=== PATIENT | female | born 1930 | race Caucasian/White ===

== ENCOUNTER 2016-09-14 10:27 | Emergency (ER) | payer OTHER ==
[~2016-09-14] VITALS: Ht 162.6 cm; Wt 77.1 kg
[~2016-09-14 10:27] MED LIST: CIPROFLOXACIN500 M1 PO; FLAGYL500 MG PO; LEVOTHYROXINE 0.1 MG PO; NORCO 5-325 TA1 EACH PO; PREMARIN0.3 MG PO
[2016-09-14 11:06] LABS: ABSOLUTE NEUTROPHILS 5.6 thou/uL (1.4-8.2); BASOPHILS 0.7 % (0.0-2.0); HEMATOCRIT 38.6 % (37.0-47.0); HEMOGLOBIN 13.2 gm/dL (12.0-15.0); LYMPHOCYTES 20.7 % (24.0-44.0); MCH 31.4 pg (26.0-34.0); MCHC 34.3 g/dL (28.0-37.0); MCV 91.7 fL (80.0-100.0); MONOCYTES 8.2 % (1.0-8.0); PLATELET COUNT 283 thou/uL (150-400); POLYS 70.4 % (36.0-66.0); RBC 4.22 mil/uL (4.20-5.00); RDW 13.9 % (10.5-14.5); WBC 7.9 thou/uL (4.0-11.0)
[2016-09-14 11:08] LABS: MANUAL DIFF NO
[2016-09-14 11:10] LABS: CALCIUM 9.2 mg/dL (8.5-10.1); CREATININE 0.7 mg/dL (0.6-1.0); POTASSIUM 4.4 mmol/L (3.5-5.1)
[2016-09-14 11:15] LABS: ALBUMIN 3.4 g/dL (3.4-5.0); TOTAL BILIRUBIN 0.5 mg/dL (<0.1-1.0); TOTAL PROTEIN 6.7 g/dL (6.4-8.2)
[2016-09-14] MEDS ORDERED: BENTYL 20 MG TA20 M1 PO (13:31)
[2016-09-14] MEDS ORDERED: HYDROCODONE-AP1 EAC6 PO (13:31)
[2016-09-14] MEDS ORDERED: ONDANSETRON HCL4 M2 PO (13:31)
[2016-09-14 13:52] VITALS: BP 172/76
== END 2016-09-14 13:55 | disposition home or self-care (01) ==
LOC: ER 10:27
PROVIDERS: Physician Assistant
DX: K80.20 Calculus of gallbladder without cholecystitis without obstruction (principal); I10 Essential (primary) hypertension; E89.0 Postprocedural hypothyroidism; Z88.1 Allergy status to other antibiotic agents; Z88.5 Allergy status to narcotic agent; Z88.8 Allergy status to other drugs, medicaments and biological substances

== ENCOUNTER → 2016-12-07 | Outpatient (CLI) | payer OTHER ==
[~2016-12-07] MED LIST changes: +BENTYL 20 MG TA20 M1 PO; +HYDROCODONE-AP1 EAC6 PO; +ONDANSETRON HCL4 M2 PO
[2016-12-07 09:17] LABS: CREATININE 0.8 mg/dL (0.6-1.0)
== END ==
LOC: LABMALL 08:27 → CAT 08:47
PROVIDERS: Specialist
DX: J43.9 Emphysema, unspecified (principal); R10.84 Generalized abdominal pain; R10.13 Epigastric pain; R11.2 Nausea with vomiting, unspecified; R19.7 Diarrhea, unspecified

== ENCOUNTER → 2017-01-21 | Outpatient (CLI) | payer OTHER ==
--- NOTE | ~2017-01-21 | P ---
[facility] [place] [address] PROCEDURE REPORT Name: BUD DONG Room #: REG ESTHELA Navarro#: [id number] Admission: 01/21/17 Attend Phys: Ismael Edgar Discharge: Date of : 32 Report #: [id number] THIS REPORT FOR: //name// CC: Ismael Weber DATE OF SERVICE: 01/21/2017 PROCEDURE PERFORMED: Colonoscopy with polypectomy and biopsies. HISTORY OF PRESENT ILLNESS: The patient is an 86-year-old female with abdominal pain and weight loss who has had a CT scan of the abdomen and pelvis, last at the beginning of the year showing possible thickening of the terminal ileum. She has also had a previous cholecystectomy. A repeat CT scan on 12/07/2016 because of continued symptoms showed high-grade narrowing of the celiac artery, diffuse plaque is present at the origin of the superior mesenteric artery, high grade renal artery stenosis also likely. Also marked inflammation in the distal small bowel consistent with ileitis was again noted, findings similar to the previous study, may reflect inflammatory bowel disease. The patient does have diarrhea. Previous colonoscopy and random biopsies were negative for microscopic colitis. Plan is for repeat colonoscopy to try to attempt further evaluation of terminal ileum. DESCRIPTION OF PROCEDURE: The risks and benefits of the procedure were explained to the patient, those risks including but not limited to bleeding, perforation, the risk of sedation. She understood these risks and gave informed consent. Sedation was given using propofol per anesthesia. Next, a digital rectal exam was initially performed, which was normal. Next, using a standard Fujinon colonoscope, the scope was placed in the patient's anus and advanced under direct vision to the cecum. The overall prep was excellent. The cecum was normal in appearance. The ileocecal valve for the most part was normal; however, I tried multiple times to intubate the terminal ileum and this was strictured. I was not able to intubate the terminal ileum. Several biopsies of the opening of the terminal ileum were obtained. I was not able to evaluate whether there were ulcerations in the terminal ileum again because of inability to pass the scope through this area. The scope was then slowly withdrawn and in the proximal ascending colon, 2 polyps were noted, 5-6 mm in size. Both removed by snare cautery, otherwise normal. The transverse and descending colon were normal. A few scattered diverticula were noted in the sigmoid colon. The rectal mucosa was normal. On retroflexion, small nonbleeding internal hemorrhoids were noted, otherwise normal colonoscopy. The scope was then withdrawn and the procedure terminated. The patient tolerated the procedure well. [address] [address] PROCEDURE REPORT Name: LETITIABUD Meme Room #: REG ESTHELA Navarro#: [id number] Admission: 01/21/17 Attend Phys: Ismael Edgar Discharge: Date of : 32 Report #: [id number] IMPRESSION: 1. Strictured ileocecal valve opening. This may reflect Crohn disease. Biopsies were obtained, but just on the outside. 2. Two colonic polyps. 3. Internal hemorrhoids. 4. Otherwise, normal colonoscopy. RECOMMENDATIONS: 1. Await biopsy results. 2. We will proceed with an ASCA labs test, which may be helpful in determining if this is Crohn's disease. 3. We will schedule the patient for arteriogram in the near future as mesenteric ischemia may be also possible cause of her abdominal pain and weight loss. Thank you for allowing me to participate in her care. <ELECTRONICALLY SIGNED> By: Ismael Colbert MD 01/22/17 1210 1000 1251 Ismael Colbert MD /nt
--- NOTE | ~2017-01-21 | S ---
[facility] [place] [address] SURGICAL PATH RPT PROCEDURE Name: DESTINY DONG Room #: REG ESTHELA MarinoImaniFreddy.#: [id number] Admission: 01/21/17 Date of : 32 Discharge: Report #: [id number] Path Case #: [id number] PATHOLOGY REPORT COLLECTION DATE: 01/21/2017 RECEIVED DATE: 01/21/2017 SUBMITTING PHYS: Dr. Ismael Colbert OTHER PHYS: Dr. Nabeel Weber SPECIMEN(S) RECEIVED: A.Terminal ileum R/O Crohn's, ischemia B.Polyp proximal ascending x2 * * * * * * * * * * * * FINAL DIAGNOSIS: A. Small bowel mucosa, terminal ileum, rule out Crohn's, ischemia, endoscopic biopsy: - Mild focal active inflammation, please see comment. - Negative for dysplasia or malignancy. B. Polyp, proximal ascending, endoscopic biopsy: - Inflamed tubular adenoma. - Negative for high-grade dysplasia. COMMENT: Examination of the "terminal ileum, rule out Crohn's, ischemia" biopsy tissue shows surface epithelial inflammation as well as foci of cryptitis. The lamina propria shows increased cellularity with numerous lymphocytes as well as plasma cells. Basal plasmacytosis is not identified. There are no viral inclusions, parasitic organisms, or granulomata identified. Both fragments sampled show a similar degree or intensity of inflammation. Findings are suggestive of mild active colitis. Early inflammatory bowel disease cannot be excluded (Crohn's disease). There are no findings to suggest an ischemic process. Other entities in the differential diagnosis include focal active colitis due to infectious-type etiology. Please correlate clinically and with endoscopic findings. (IUV:mgr; 01/22/2017) PATHOLOGIST: Brooklyn De Leon M.D. REPORT ELECTRONICALLY SIGNED BY: Brooklyn De Leon M.D. DATE/TIME: 01/22/2017 16:58 * * * * * * * * * * * * GROSS PATHOLOGY: A. The specimen is received in formalin, labeled "Destiny Dong and terminal ileum", are several jensen soft tissue 0.4 x 0.2 x 0.[address] [address] SURGICAL PATH RPT PROCEDURE Name: ALFREDITO DONGMATTHEW Valentine Room #: REG [facility]#: [id number] Admission: 01/21/17 Date of : 32 Discharge: Report #: [id number] Path Case #: [id number] aggregate, entirely submitted in A1. B. The specimen is received in formalin, labeled "Destiny Dong and polyp proximal ascending", are multiple jensen polypoid soft tissue ranging from 0.3 up to 0.9 cm and measuring 1.3 x 1.0 x 0.4 cm in aggregate, resection margin inked black larger polyps are bisected and entirely submitted in B1-B2. (SWS; 01/21/2017) CLINICAL HISTORY: Abdominal pain, colon polyps A- Rule out Crohn's/ischemia INITIAL CPT CODE(S): A; 34797 B; 31973 Professional services performed by [facility] at [facility] [address], [place] [address] Technical services performed by [facility] at [address] [place] [address], [address], [place] [address]. [facility] [address] [place] [address] PHONE: [phone] DIRECTOR: Ernesto Schaffer M.D. * * * END OF REPORT * * *
== END | disposition home or self-care (01) ==
LOC: GI 07:33
DX: D12.2 Benign neoplasm of ascending colon (principal); K63.89 Other specified diseases of intestine; K56.699 Other intestinal obstruction unspecified as to partial versus complete obstruction; K57.30 Diverticulosis of large intestine without perforation or abscess without bleeding; K64.8 Other hemorrhoids; Z90.49 Acquired absence of other specified parts of digestive tract; Z88.6 Allergy status to analgesic agent; Z88.8 Allergy status to other drugs, medicaments and biological substances; Z98.890 Other specified postprocedural states

== ENCOUNTER 2019-02-18 08:45 | Inpatient (IN) | payer OTHER ==
[~2019-02-18] VITALS: Ht 162.6 cm; Wt 98.0 kg
[~2019-02-18 08:45] MED LIST changes: -LEVOTHYROXINE 0.1 MG PO; +LEVOXYL125 MCG PO
[2019-02-18 08:47] VITALS: BP 188/74
[2019-02-18] MEDS ORDERED: PULMICORT0.25 MG/2 INH (09:06)
[2019-02-18] MEDS ORDERED: ASA81BEC PO (09:06)
[2019-02-18] MEDS ORDERED: DEMADEX20 MG PO (09:07)
[2019-02-18] MEDS ORDERED: NEURONTIN100 MG PO (09:07)
[2019-02-18] MEDS ORDERED: VALIUM2 MG PO ×2 (09:07→16:06)
[2019-02-18] MEDS ORDERED: TRAZODONE 150150 M1 PO (09:07)
[2019-02-18 10:52] LABS: ABSOLUTE NEUTROPHILS 6.1 thou/uL (1.4-8.2); BASOPHILS 0.8 % (0.0-2.0); HEMATOCRIT 37.9 % (37.0-47.0); HEMOGLOBIN 12.8 gm/dL (12.0-15.0); LYMPHOCYTES 18.7 % (24.0-44.0); MCH 33.1 pg (26.0-34.0); MCHC 33.8 g/dL (28.0-37.0); MCV 97.9 fL (80.0-100.0); MONOCYTES 10.2 % (1.0-8.0); PLATELET COUNT 351 thou/uL (150-400); POLYS 70.3 % (36.0-66.0); RBC 3.87 mil/uL (4.20-5.00); RDW 15.1 % (10.5-14.5); WBC 8.7 thou/uL (4.0-11.0)
[2019-02-18 10:58] LABS: CALCIUM 10.2 mg/dL (8.5-10.1); CREATININE 0.9 mg/dL (0.6-1.0); POTASSIUM 3.9 mmol/L (3.5-5.1)
[2019-02-18 11:58] VITALS: BP 162/54
[2019-02-18 12:13] VITALS: BP 132/64
[2019-02-18 12:58] LABS: TSH 2.788 uIU/mL (0.358-3.740)
--- NOTE | 2019-02-18 15:09 | 2DMMODE ---
[facility] [address] [place] [address] 2 D/M-MODE ECHOCARDIOGRAM Name: BUD DONG Room #: 453-P [facility]#: [id number] Admission: 02/18/19 Attend Phys: Len Hardin MD Discharge: Date of : 32 Report #: [id number] THIS REPORT FOR: //name// APPROVED REPORT Study performed: 02/18/2019 12:28:45 EXAM: Comprehensive 2D, Doppler, and color-flow Echocardiogram Patient Location: In-Patient Room #: 453 Status: routine BSA: 2.01 HR: 83 bpm BP: 162/54 mmHg Other Information Study Quality: Poor Technically limited study due to inability to position patient, body habitus. Indications Hypertension/HDD 2D Dimensions IVSd: 9.28 (7-11mm) LVOT Diam: 19.30 (18-24mm) LVDd: 39.84 mm PWd: 9.04 (7-11mm) Ascending Ao: 32.08 (22-36mm) LVDs: 29.13 (25-40mm) Aortic Root: 29.96 mm Aortic Valve AoV Peak Bobby.: 1.24 m/s AO Peak Gr.: 6.13 mmHg LVOT Max P.13 mmHg LVOT Max V: 1.02 m/s AI Vmax: 2.40 cm2 Mitral Valve E/A Ratio: 0.9 MV Decel. Time: 153.37 ms MV E Max Bobby.: 0.82 m/s MV A Bobby.: 0.94 m/s MV PHT: 44.48 ms IVRT: 62.28 ms Pulmonary Vein [facility] [address] [place] [address] 2 D/M-MODE ECHOCARDIOGRAM Name: BUD DONG Room #: 453-P [facility]#: [id number] Admission: 02/18/19 Attend Phys: Len Hardin MD Discharge: Date of : 32 Report #: [id number] P Vein S: 0.60 m/s P Vein A: 0.33 m/s P Vein D: 0.32 m/s P Vein A Dur.: 106.1 msec P Vein S/D Ratio: 1.88 Tricuspid Valve TR Peak Bobby.: 3.14 m/s RAP Estimate: 5.00 mmHg TR Peak Gr.: 39.38 mmHg PA Pressure: 44.00 mmHg Left Ventricle The left ventricle is normal size. There is normal left ventricular wall thickness. The left ventricular systolic function is normal. The left ventricular ejection fraction is within the normal range. LVEF is 60-65%. Mild diastolic dysfunction is present (impaired relaxation pattern). Right Ventricle The right ventricle is normal size. Right ventricular systolic function appears normal. Atria The left atrium size is normal. The right atrium size is normal. Aortic Valve The aortic valve is normal in structure. No aortic regurgitation is present. There is no aortic valvular stenosis. Mitral Valve There is mitral annular calcification. Trace mitral regurgitation. No evidence of mitral valve stenosis. Tricuspid Valve The tricuspid valve is normal in structure. Trace tricuspid regurgitation. Estimated PAP is 44mmHg. Pulmonic Valve Pulmonic valve is not well visualized. Great Vessels The aortic root is normal in size. The ascending aorta is normal in size. IVC is normal in size and collapses >50% with inspiration. Pericardium There is no pericardial effusion. [facility] [address] [place] [address] 2 D/M-MODE ECHOCARDIOGRAM Name: BUD DONG Room #: 453-P [facility] .R.#: [id number] Admission: 02/18/19 Attend Phys: Len Hardin MD Discharge: Date of : 32 Report #: [id number] <Conclusion> There is normal left ventricular wall thickness. The left ventricular systolic function is normal. Mild diastolic dysfunction is present (impaired relaxation pattern). The right ventricle is normal size. The left atrium size is normal. The aortic valve is normal in structure. Trace mitral regurgitation. Trace tricuspid regurgitation. Estimated PAP is 44mmHg. <ELECTRONICALLY SIGNED> By: Sohan Story MD 02/18/19 1508 1508 1508 Sohan Story MD /UTE
[2019-02-18] MEDS ORDERED: QUESTRAN PACKET4 GM PO (15:29)
[2019-02-18] MEDS ORDERED: AVAPRO 150 MG150 M1 PO (16:05)
[2019-02-18] MEDS ORDERED: ENTOCORT EC 3 MG3 MG PO (16:14)
[2019-02-18] MEDS ORDERED: COLESTIPOL HCL1 G1 PO (16:15)
[2019-02-18] MEDS ORDERED: CARBIDOPA-LEVO1 EAC8 PO (16:15)
[2019-02-18] MEDS ORDERED: VITAMIN D400 UNIT PO (16:16)
[2019-02-18] MEDS ORDERED: BENADRYL ALLERG25 MG PO (16:16)
--- NOTE | 2019-02-18 16:20 | NUR ---
PT ADMITTED RELATED TO RIGHT LOWER EXTREMITY WOUND. CM REVIEWED CHART AND SPOKE WITH CARE TEAM. CM MET WITH PT AND DTR AT BEDSIDE THIS PT IS A&O X4. CM ROLE INTRODUCED. PT INDICATED SHE LIVES AT ASSISTED LIVING AT [facility]. SHE INDICATED THAT SHE HAS A 4WW AND A WHEELCHAIR FOR USE AT FACILITY. FAMILY INDICATED THAT PT HAS ASSIST WITH BATHING AND DRESSING. THEY INDICATED THAT PT HAD HOME HEALTH THROUGH [facility] IN THE PAST AND THEY WOULD LIKE TO USE THEM AGAIN IF NEEDED UPON DC. [facility]TEY SPECIFICALLY MENTIONED A NURSE NAMES JAYDON. DTR ALSO INDICATED THAT THEY HAD BEEN TAKING PT TO OP THERAPY AT [facility]. PT AND DTR INDICATED THEY ANTICPATE PT RETURNING TO [facility] WITH [facility] ONCE MEDICALLY STABLE. CM TO FOLLOW INDICATED WITH DC PLANNING.
--- NOTE | 2019-02-18 16:37 | NUR ---
NEW ADMIT FORM ED FOR RIGHT LE CELLUTITIS. ALERT X3 WITH FORGETFULNESS, HX OF PARKINSONS, 2 WOUNDS ON RIGHT LE THAT ARE DRAINING WITH REDNESS AND BLISTORING MED REC RECONCILED. FRAGLE SKIN. USES WALKER, LIVES AT [facility]. ADMISSION ASSESMENT AND HISTORY COMPLETED. ORRIENTED TO ROOM. FAMILY BEDSIDE FAMILY VOICED STAFF AT [facility] STOPED PT DIURETIC AND SHE HAS SEVERE SUNDOWNING AND TO KEEP SHADES CLOSED AT 3PM. INCONTIENT WEARS BREIFS, LAST BM 02/18. PT IS A RETIRED NURES OF 35YEARS. FALL PROTOCAL IN PLACE. CALL LIGHT IN REACH.
[2019-02-18 19:24] VITALS: BP 133/56
--- NOTE | 2019-02-19 04:42 | NUR ---
Pt. rested quietly at intervals during the night when checked on during frequent rounds. She was given po tylenol for general discomfort (see emar) with some relief noted. Dressing applied to right lower leg as ordered. Bed alarm is on.
[2019-02-19 05:29] LABS: ABSOLUTE NEUTROPHILS 5.3 thou/uL (1.4-8.2); BASOPHILS 0.8 % (0.0-2.0); EOSINOPHILS 0.1 % (0.0-3.0); HEMATOCRIT 31.3 % (37.0-47.0); LYMPHOCYTES 21.4 % (24.0-44.0); MCH 33.2 pg (26.0-34.0); MCHC 33.9 g/dL (28.0-37.0); MCV 98.2 fL (80.0-100.0); MONOCYTES 9.2 % (1.0-8.0); POLYS 68.5 % (36.0-66.0); RBC 3.19 mil/uL (4.20-5.00); RDW 14.9 % (10.5-14.5); WBC 7.7 thou/uL (4.0-11.0)
[2019-02-19 05:45] LABS: HEMOGLOBIN 10.6 gm/dL (12.0-15.0); PLATELET COUNT 264 thou/uL (150-400)
[2019-02-19 05:57] LABS: CALCIUM 8.8 mg/dL (8.5-10.1); MAGNESIUM 1.8 mg/dL (1.8-2.4)
[2019-02-19 07:26] VITALS: BP 161/68
[2019-02-19] MEDS ORDERED: VITAMIN D34000 UNIT PO ×2 (11:16→11:31)
--- NOTE | 2019-02-19 14:42 | NUR ---
Nutrition: RD assessed due to dx of right lower extremity wound/cellulitis that is draing. Wound care on consult. Attempted to visit pt but dtr rushed RD out of room stating pt is trying to sleep. Pt is retired RN. On regular diet, no po intake records yet. No weight loss per hx. BMI 37, obesity class 2. BNP 397 and pt on torsemide. May benefit from Na+ restriction. RD will follow intake trends and offer Ensure Max daily to assist with wound healing needs. Will attempt re visit 02/20.
[2019-02-19 14:56] VITALS: BP 146/50
--- NOTE | 2019-02-19 16:02 | NUR ---
ASSUMED CARE AT 0700, SHIFT ASSESMENT DONE, MEDS GIVEN, VSS. REPORTED PAIN, PRN PAIN MEDS GIVEN. UP WITH STANDBY ASSIST, REFUSED PHYSCICAL THERAPHY. WILL CONTINUE TO ASSESS AND ASSIST WITH ADLs NEEDED.
[2019-02-19 19:42] VITALS: BP 140/98
[2019-02-20 05:26] LABS: HEMATOCRIT 31.8 % (37.0-47.0); HEMOGLOBIN 10.7 gm/dL (12.0-15.0); MCH 33.1 pg (26.0-34.0); MCHC 33.7 g/dL (28.0-37.0); MCV 98.2 fL (80.0-100.0); RBC 3.24 mil/uL (4.20-5.00); RDW 15.2 % (10.5-14.5)
[2019-02-20 05:32] LABS: CALCIUM 8.7 mg/dL (8.5-10.1); POTASSIUM 4.2 mmol/L (3.5-5.1)
--- NOTE | 2019-02-20 06:14 | NUR ---
Pt. rested quietly at intervals during the night when checked on during frequent rounds. She c/o bilateral hip pain and po pain meds given (see emar) with relief noted. Up to the bedside comode with assist of two. Bed alarm is on.
[2019-02-20 07:38] VITALS: BP 135/70
--- NOTE | 2019-02-20 12:13 | NUR ---
DISCHARGE PLANNING. DISCHARGE PLANNED TO HOME WITH [facility]. PATIENT REFERRAL FAXED TO [facility]. CALL PLACED TO [facility] TO NOTIFY. [facility] ACCEPTING OF PATIENT AT DISCHARGE AND WILL FACILITATE PATIENTS HH NEEDS ONCE HH ORDERS RECEIVED. [facility] INTAKE NUMBER [phone] FAX NUMBER [phone]. SHOULD PATIENT DISCHARGE OVER THE WEEKEND. PLEASE FAXED COMPLETED DISCHARGE ORDERS AND SUMMARY TO ABOVE FAX NUMBER. THANK YOU.
--- NOTE | 2019-02-20 13:17 | NUR ---
CARE TEAM INDICATED THAT PT WILL POSSIBLY BE MEDICALLY STABLE TO DISHCARGE BACK TO [facility] OVER THE WEEKEND WITH [facility]. REFERRAL SENT TO [facility]. CHART COPY ORDERED. ORDERS WILL NEED TO BE FAXED TO . FAX FINAL ORDERS TO [facility] . PT'S DTR TO PROVIDE TRANSPORT.
--- NOTE | 2019-02-20 14:24 | NUR ---
Received awake on bed. Due medications given as prescribed, able to swallow meds w/o difficulty. A+O. On room air. Vital signs stable, with slight BP elevation, BP meds given as prescribed. Occasional incontinence, with pads on but able to use bedside commode and able to walk to the bathroom using gait belt, walker and moderate assist. With Freddy RAHMAN cellulitis- dressing changed today, seen by wound team as well. With SL at L AC- clotted off, re-sited at L wrist. Assisted in ADLs. Falls bundle in place. On regular diet- tolerating well; no nausea, no vomiting and no abdominal pain noted. Seen by PT today- tolerated session, able to walk in the room. With daughter at bedside.
[2019-02-20 15:45] VITALS: BP 135/70
[2019-02-20 17:00] VITALS: BP 128/62
--- NOTE | 2019-02-21 05:15 | NUR ---
Pt. rested quietly during the night when checked on during frequent rounds. She c/o bilateral hip pain and po tylenol given (see emar) with some relief. Up to the bedside comode this am with assist of two and a gait belt.
[2019-02-21 07:50] VITALS: BP 163/67
[2019-02-21 15:20] VITALS: BP 107/56
--- NOTE | 2019-02-21 16:30 | NUR ---
Received awake on bed. Due medications given as prescribed, able to swallow meds w/o difficulty. A+O. On room air. Vital signs stable. Able to use the bedside commode and go to the bathroom using walker, gait belt and moderate assist. With dressing at R LE, C/D/I- changed today. With SL at L wrist- intact and flushing well, IV antibiotics given as prescribed. Assisted in ADLs. Complained of pain, due PRN pain meds given as prescribed. Pt complained that she has not opened her bowels for 3 days, PRN stool softener given as prescribed. With daughter at bedside. Legs kept elevated as much as patient can. With elevated BP noted this AM- BP medications given as prescribed.
[2019-02-21 19:30] VITALS: BP 126/54
--- NOTE | 2019-02-22 02:51 | NUR ---
PATIENT ALERT AND ORIENTED X4. UP WALKING THE HALLWAY AT BEGINNING OF SHIFT WITH HER SON. VOIDING PER BSC. VANCO TROUGH WAS 22 AND PER PHARMACY MEDICATION WAS NOT HUNG. SON REQUESTED THAT PATIENT BE GIVEN VICODIN AT NIGHT WITH HER SCHEDULED MEDS TO ASSIST WITH SLEEPING AND PAIN - THIS WAS DONE. RESTING QUIETLY AT TIME OF NOTE. WILL MONITOR.
[2019-02-22 08:07] VITALS: BP 125/50
[2019-02-22 16:00] VITALS: BP 103/43
--- NOTE | 2019-02-22 17:52 | NUR ---
Assumed patient care at 0715. Patient's vital signs have been stable. She has had a caregiver and her daughter taking turns, staying around the clock. Daughter can be very demanding and in turn, upset her mother whom is much appreciative of the care she is receiving at this facility. Patient was assisted with a shower and her dressing on lower right leg was changed. IV in left hand had become dislodged sometime during the night, had been bleeding. New IV placed in right hand, it is Saline Locked. Hydrocodone given x's 2 during this shift with partial pain relief. Diazepam requested and recieved this afternoon with effectiveness. Patient and daughter have been talking about being discharged tomorrow. Patient has been assisted x's 1 to restroom and back to bed or chair. She has had no adverse reactions related to her ABT therapy. POC followed. Will continue to monitor.
[2019-02-22 19:22] VITALS: BP 155/53
--- NOTE | 2019-02-23 05:25 | NUR ---
PATIENT ALERT AND ORIENTED X4 WITH FORGETFULNESS AND SOME CONFUSION AT TIMES. CAREGIVER AT BEDSIDE. R LOWER EXT WRAPPED. WALKED IN RAMAN AT BEGINNING OF SHIFT. UP TO BATHROOM X2 WITH ASSIST, GATEBELT AND WALKER. SLEPT MOST OF NIGHT, SLEPT IN CHAIR. C/O PAIN X1.
[2019-02-23 08:49] VITALS: BP 143/41
[2019-02-23 12:21] VITALS: BP 135/70
--- NOTE | 2019-02-23 14:41 | NUR ---
WOUND CARE FOLLOW UP; FOLLWING DR BANG WITH THIS PATIENTS DRESSING CHANGE. D/C IS EMMINENT. PICTURE TAKEN. THE WOUND BED HAS NON VIABLE TISSUE TODAY. THE EXTREMITY IS MODERATLY EDEMATOUS. RECOMMENDATION; DR BANG ORDERED THERAHONEY, BOARDER FOAM, KERLIX,YISEL WRAP. DISCUSSED WITH DIANA
--- NOTE | 2019-02-23 15:02 | NUR ---
Assumed patient care at 0715. Patient's vital signs have been stable. She has been pleasant and cooperative and had no adverse reactions to her Antibiotic Therapy. Wound Care Team came and changed dressing on right lower extremity. A picture was taken of the wounds as patient is to Discharge today. Patient continues to require assist x's 1 to ambulate to and from the restroom. Patient is to Discharge back to Assisted Living Facility with Home Health orders. Daughter has been at patient's bedside; she will be transporting patient to the other facility. POC followed.
[2019-02-23] MEDS ORDERED: KEFLEX500 M1 PO (15:11)
[2019-02-23] MEDS ORDERED: PROTONIX40 M1 PO (15:12)
--- NOTE | 2019-03-02 18:37 | HC ---
[facility] [place] [address] CONSULTATION Name: BUD DONG Room #: 453-P [facility]..#: [id number] Admission: 02/18/19 Attend Phys: Len Hardin MD Discharge: 02/23/19 Date of : 32 Report #: [id number] THIS REPORT FOR: //name// CC: Len Weber DATE OF SERVICE: 02/18/2019 CHIEF COMPLAINT: Ulceration of the right lower extremity. HISTORY OF PRESENT ILLNESS: This is an 88-year-old female patient with a history of Parkinson's disease and chronic vertigo, who was admitted to the hospital with cellulitis of the right leg and nonhealing ulceration with persistent edema. She had been placed on Demadex in the past. However, her medications have been missed for the last couple of weeks, she has developed increasing swelling in the legs with drainage and ulceration. She is admitted to the hospital for ongoing treatment and evaluation. I have been asked to see with regard to wound care. PAST MEDICAL HISTORY: Positive for history of hypertension, chronic labyrinthitis, hypothyroidism, lumbar disk disease, and chronic sinusitis, left foot neuroma, history of Crohn's disease, Parkinson's, Alzheimer's. She has had previous subtotal thyroidectomy. SOCIAL HISTORY: She is patient is a former smoker. No alcohol use. FAMILY HISTORY: Noncontributory. MEDICATIONS: Include Synthroid, Desyrel, Entocort, carbidopa/levodopa, colestipol, vitamin D3, Benadryl, Questran, Avapro, Valium, aspirin, Neurontin, Demadex, Valium. ALLERGIES: CODEINE, MORPHINE, MSG, SCOPOLAMINE, HYDROCODONE, MEPERIDINE. REVIEW OF SYSTEMS: CONSTITUTIONAL: The patient denies fever, chills, or weight loss. NEUROLOGICAL: The patient denies focal weakness, numbness or tingling. EYES: The patient denies any visual changes, redness or drainage. ENT: The patient denies earache, nasal drainage, sore throat. CARDIOVASCULAR: The patient denies chest pain or palpitations or diaphoresis. PULMONARY: The patient complains of mild shortness of breath. Denies cough or sputum production. GASTROINTESTINAL: The patient denies nausea, vomiting, diarrhea or abdominal pain. GENITOURINARY: The patient denies frequency, urgency or dysuria. ORTHOPEDIC: The patient denies pain, swelling and redness in the lower [facility] [address] [place] [address] CONSULTATION Name: BUD DONG Room #: 453-P [facility].#: [id number] Admission: 02/18/19 Attend Phys: Len Hardin MD Discharge: 02/23/19 Date of : 32 Report #: [id number] extremities and ulceration on the right side. Other systems in a 14-point review of systems are negative. PHYSICAL EXAMINATION: VITAL SIGNS: At this time include temperature 36.8, pulse 86, respiratory rate 12, blood pressure 132/64. GENERAL: This is a chronically ill-appearing female patient who appears to be in no distress. HEENT: Head normocephalic. Nose and throat clear. NECK: Supple. LUNGS: Diminished. HEART: Regular rate and rhythm. ABDOMEN: Soft, bowel sounds present. EXTREMITIES: Lower extremities demonstrate palpable distal pulses. She has 2-3+ edema both lower extremities. She has circular ulceration on the posterolateral portion of the right lower leg and surrounding cellulitis. The ulcers are relatively clean, granulating with a scant amount of odor. LABORATORY DATA: Include sodium 137, potassium 3.9, chloride 98, CO2 of 32, BUN 20, creatinine is 0.9, glucose 103. White blood cell count 8.7 with a hemoglobin of 12.8. CLINICAL IMPRESSION: 1. Venous type ulceration of the right lower extremity. 2. Cellulitis, right lower extremity. 3. Hypertension. 4. Lymphedema, bilateral lower extremities. RECOMMENDATIONS: At this point in time, we will use topical Silvadene, morphine, Xeroform, Kerlix and ABD. Gently apply Star wrap toes to knees bilaterally. She will need empiric antibiotic therapy pending culture and sensitivity. She will need elevation of the lower extremities as well as gentle diuresis. I appreciate being asked to see her in consultation. We will follow her while here in the hospital. <ELECTRONICALLY SIGNED> By: Pierce Brar MD 03/02/19 1837 1622 02 Pierce Brar MD /nt
== END 2019-02-23 17:20 | disposition hospice, inpatient (51) | DRG 603 ==
LOC: ER 08:45 → EROBS 11:48 → 4W 11:48 → ENTRNSPT 02-23 15:56 → 4W 02-23 17:20
PROVIDERS: Emergency Medicine; Nurse Practitioner; ADMIT Hospitalist
DX: L03.115 Cellulitis of right lower limb (principal); L97.919 Non-pressure chronic ulcer of unspecified part of right lower leg with unspecified severity; K50.90 Crohn's disease, unspecified, without complications; G20 Parkinson's disease; I10 Essential (primary) hypertension; E89.0 Postprocedural hypothyroidism; Z96.1 Presence of intraocular lens; I73.9 Peripheral vascular disease, unspecified; M48.00 Spinal stenosis, site unspecified; G30.9 Alzheimer's disease, unspecified; F02.80 Dementia in other diseases classified elsewhere, unspecified severity, without behavioral disturbance, psychotic disturbance, mood disturbance, and anxiety; Z66 Do not resuscitate; Z60.2 Problems related to living alone; M17.11 Unilateral primary osteoarthritis, right knee; G47.00 Insomnia, unspecified; E53.8 Deficiency of other specified B group vitamins; E66.9 Obesity, unspecified; M48.061 Spinal stenosis, lumbar region without neurogenic claudication; L30.9 Dermatitis, unspecified; I89.0 Lymphedema, not elsewhere classified; Z79.82 Long term (current) use of aspirin; Z79.899 Other long term (current) drug therapy; Z88.6 Allergy status to analgesic agent; Z88.8 Allergy status to other drugs, medicaments and biological substances; Z87.891 Personal history of nicotine dependence
CPT/HCPCS: 10047

== ENCOUNTER 2019-03-07 09:30 | Emergency (ER) | payer OTHER ==
[~2019-03-07] VITALS: Ht 162.6 cm; Wt 81.7 kg
[~2019-03-07 09:30] MED LIST changes: +ASA81BEC PO; +AVAPRO 150 MG150 M1 PO; +BENADRYL ALLERG25 MG PO; +CARBIDOPA-LEVO1 EAC8 PO; +COLESTIPOL HCL1 G1 PO; +DEMADEX20 MG PO; +ENTOCORT EC 3 MG3 MG PO; +KEFLEX500 M1 PO; +NEURONTIN100 MG PO; +PROTONIX40 M1 PO; +PULMICORT0.25 MG/2 INH; +QUESTRAN PACKET4 GM PO; +TRAZODONE 150150 M1 PO; +VALIUM2 MG PO; +VITAMIN D34000 UNIT PO; +VITAMIN D400 UNIT PO
[2019-03-07 10:59] VITALS: BP 157/41
[2019-03-07] MEDS ORDERED: PHENERGAN 25 MG25 MG PO (11:04)
== END 2019-03-07 11:48 | disposition home or self-care (01) ==
LOC: ER 09:30
DX: R05 Cough (principal); F17.210 Nicotine dependence, cigarettes, uncomplicated; J44.9 Chronic obstructive pulmonary disease, unspecified; I10 Essential (primary) hypertension; E03.9 Hypothyroidism, unspecified; Z88.5 Allergy status to narcotic agent; Z88.8 Allergy status to other drugs, medicaments and biological substances; Z79.82 Long term (current) use of aspirin; Z79.899 Other long term (current) drug therapy; Z98.890 Other specified postprocedural states

== ENCOUNTER → 2019-03-12 | Outpatient (CLI) | payer OTHER ==
[~2019-03-12] MED LIST changes: +PHENERGAN 25 MG25 MG PO
== END ==
LOC: HYPER
DX: L97.811 Non-pressure chronic ulcer of other part of right lower leg limited to breakdown of skin (principal); G20 Parkinson's disease; K50.019 Crohn's disease of small intestine with unspecified complications; I74.8 Embolism and thrombosis of other arteries; E78.5 Hyperlipidemia, unspecified; I10 Essential (primary) hypertension; M81.0 Age-related osteoporosis without current pathological fracture; E03.9 Hypothyroidism, unspecified; M16.0 Bilateral primary osteoarthritis of hip; E55.9 Vitamin D deficiency, unspecified; M54.16 Radiculopathy, lumbar region; N39.498 Other specified urinary incontinence; N60.19 Diffuse cystic mastopathy of unspecified breast; M19.90 Unspecified osteoarthritis, unspecified site; G47.00 Insomnia, unspecified; R60.0 Localized edema; R26.9 Unspecified abnormalities of gait and mobility; R53.83 Other fatigue; J44.9 Chronic obstructive pulmonary disease, unspecified; F41.8 Other specified anxiety disorders; F32.1 Major depressive disorder, single episode, moderate; F03.90 Unspecified dementia, unspecified severity, without behavioral disturbance, psychotic disturbance, mood disturbance, and anxiety; F17.200 Nicotine dependence, unspecified, uncomplicated

== ENCOUNTER → 2019-04-08 | Outpatient (CLI) | payer OTHER | LOC: HYPER 10:38 | DX: L97.811 Non-pressure chronic ulcer of other part of right lower leg limited to breakdown of skin (principal); L03.115 Cellulitis of right lower limb; E78.5 Hyperlipidemia, unspecified; E03.9 Hypothyroidism, unspecified; M16.0 Bilateral primary osteoarthritis of hip; I10 Essential (primary) hypertension; K50.019 Crohn's disease of small intestine with unspecified complications; I74.8 Embolism and thrombosis of other arteries; J44.9 Chronic obstructive pulmonary disease, unspecified; M81.0 Age-related osteoporosis without current pathological fracture; G47.00 Insomnia, unspecified; R26.9 Unspecified abnormalities of gait and mobility; E55.9 Vitamin D deficiency, unspecified; M54.16 Radiculopathy, lumbar region; N39.498 Other specified urinary incontinence; G20 Parkinson's disease; F02.80 Dementia in other diseases classified elsewhere, unspecified severity, without behavioral disturbance, psychotic disturbance, mood disturbance, and anxiety; F41.8 Other specified anxiety disorders; F32.1 Major depressive disorder, single episode, moderate; F17.200 Nicotine dependence, unspecified, uncomplicated ==

== ENCOUNTER → 2019-04-16 | Outpatient (CLI) | payer OTHER | END | disposition home or self-care (01) | LOC: SJCVCIMAG 12:23 | DX: M79.604 Pain in right leg (principal); M79.605 Pain in left leg; R22.43 Localized swelling, mass and lump, lower limb, bilateral; M79.89 Other specified soft tissue disorders ==

== ENCOUNTER → 2019-04-27 | Outpatient (CLI) | payer OTHER | LOC: HYPER 14:02 | DX: L97.811 Non-pressure chronic ulcer of other part of right lower leg limited to breakdown of skin (principal); L03.115 Cellulitis of right lower limb; R26.9 Unspecified abnormalities of gait and mobility; K50.019 Crohn's disease of small intestine with unspecified complications; I74.8 Embolism and thrombosis of other arteries; E78.5 Hyperlipidemia, unspecified; J44.9 Chronic obstructive pulmonary disease, unspecified; M81.0 Age-related osteoporosis without current pathological fracture; E03.9 Hypothyroidism, unspecified; I10 Essential (primary) hypertension; M16.0 Bilateral primary osteoarthritis of hip; M54.16 Radiculopathy, lumbar region; N39.498 Other specified urinary incontinence; N60.19 Diffuse cystic mastopathy of unspecified breast; M19.90 Unspecified osteoarthritis, unspecified site; G47.00 Insomnia, unspecified; G20 Parkinson's disease; F02.80 Dementia in other diseases classified elsewhere, unspecified severity, without behavioral disturbance, psychotic disturbance, mood disturbance, and anxiety; F41.9 Anxiety disorder, unspecified; F41.8 Other specified anxiety disorders; F32.1 Major depressive disorder, single episode, moderate; F17.200 Nicotine dependence, unspecified, uncomplicated ==

== ENCOUNTER 2019-05-24 02:40 | Inpatient (IN) | payer OTHER ==
[~2019-05-24] VITALS: Ht 165.1 cm; Wt 106.4 kg
[~2019-05-24 02:40] MED LIST changes: -CARBIDOPA-LEVO1 EAC8 PO; +CARBIDOPA-LEVO1 EAC9 PO
[2019-05-24 02:42] VITALS: BP 148/67
[2019-05-24] MEDS ORDERED: ACETAMINOPHEN PO (02:54)
[2019-05-24] MEDS ORDERED: DELSYM30 MG/5 M1 PO (02:56)
[2019-05-24] MEDS ORDERED: DEMADEX20 MG PO (02:57)
[2019-05-24] MEDS ORDERED: LORCET 5-325 M1 EACH PO (02:58)
[2019-05-24] MEDS ORDERED: IMODIUM A-D2 M1 PO (02:59)
[2019-05-24] MEDS ORDERED: LEVO-T100 MCG PO (03:02)
[2019-05-24] MEDS ORDERED: MIRALAX119 GM PO (03:04)
[2019-05-24] MEDS ORDERED: PROTONIX40 M3 PO (03:05)
[2019-05-24] MEDS ORDERED: TUMS200 MG PO (03:08)
[2019-05-24 03:42] LABS: ABSOLUTE NEUTROPHILS 10.8 thou/uL (1.4-8.2); BASOPHILS 0.4 % (0.0-2.0); HEMATOCRIT 34.7 % (37.0-47.0); HEMOGLOBIN 11.5 gm/dL (12.0-15.0); LYMPHOCYTES 11.1 % (24.0-44.0); MCH 31.4 pg (26.0-34.0); MCHC 33.1 g/dL (28.0-37.0); MCV 94.9 fL (80.0-100.0); MONOCYTES 5.7 % (1.0-8.0); PLATELET COUNT 308 thou/uL (150-400); POLYS 82.8 % (36.0-66.0); RBC 3.66 mil/uL (4.20-5.00); RDW 16.8 % (10.5-14.5); WBC 13.1 thou/uL (4.0-11.0)
[2019-05-24 04:08] LABS: ANION GAP 8 mmol/L (7-16); BUN 22 mg/dL (7-18); CALCIUM 8.7 mg/dL (8.5-10.1); CHLORIDE 95 mmol/L (98-107); CO2 33 mmol/L (21-32); CREATININE 1.2 mg/dL (0.6-1.0); GLUCOSE 133 mg/dL (74-106); POTASSIUM 3.2 mmol/L (3.5-5.1); SODIUM 136 mmol/L (136-145)
[2019-05-24 04:16] LABS: URINE BILIRUBIN NEGATIVE (Negative); URINE BLOOD NEGATIVE (Negative); URINE CLARITY CLEAR; URINE COLOR YELLOW; URINE GLUCOSE-RANDOM* NEGATIVE (Negative); URINE KETONES NEGATIVE (Negative); URINE LEUKOCYTES-REFLEX NEGATIVE (Negative); URINE NITRITE-REFLEX NEGATIVE (Negative); URINE PROTEIN (DIPSTICK) NEGATIVE (Negative); URINE UROBILINOGEN 0.2 E.U./dl (0.2-1.0)
[2019-05-24 04:17] LABS: MAGNESIUM 1.5 mg/dL (1.8-2.4); TROPONIN-I <0.06 ng/mL (<0.06)
[2019-05-24 06:36] LABS: ALBUMIN 3.2 g/dL (3.4-5.0); DIRECT BILIRUBIN 0.3 mg/dL (<0.1-0.2); TOTAL PROTEIN 6.4 g/dL (6.4-8.2)
[2019-05-24 06:57] VITALS: BP 163/71
[2019-05-24 08:44] VITALS: BP 150/46
[2019-05-24 11:53] VITALS: BP 147/60
[2019-05-24 15:21] VITALS: BP 140/70
--- NOTE | 2019-05-24 18:11 | NUR ---
PATIENT ADMIT TO UNIT AT 0900 WITH AMS. PATIENT ALERT TO SELF. HAS SLURRED SPEECH WHEN FRIST ARRIVED ( SHAMEKA BARNETT TOLD RN PATIENT RECEIVED HYDROCODON AND TRAZODONE BEFROE COME TO HOSPITAL). PATIENT GETTING MORE RESTLEE AT 1700. PATIENT TOO WEAK TO GET OUT OF BED TO CHAIR. RLL RED WITH EDEMA. PATIENT SHAMEKA WANTS PATIENT BACK PAIN MEDS. VALIUM, TRAZODON. MASSSGE SENT TO DR GUTIÉRREZ. WILL KEEP MONITOR.
--- NOTE | 2019-05-25 00:44 | NUR ---
ASSUMED CARE OF PT AT APPROXIMATELY 1915. 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 HE SEEMED ESPECIALLY FOCUSED ON THE PT RECEIVING HER DOSE OF VALIUM AT NIGHT FOR SLEEP. HE ALSO STATED THAT "SHE WAS BROUGHT HERE FOR FEVER, NOT FOR ALTERED MENTAL STATUS." HE REPORTS AT HOME THAT SHE IS SOMETIMES CONFUSED WELL AND INSISTED THAT SHE WILL NOT BE ABLE TO SLEEP WITHOUT TAKING THE VALIUM. DID ATTEMPT TO INFORM HIM THAT FEVERS/INFECTION CAN CAUSE A PATIENT TO BE DISORIENTED AND HAVE AN ALTERED MENTAL STATUS. DID SPEAK WITH ELECTRONICS DESIGN ENGINEER, REQUESTED REVIEW OF HER MEDICATIONS AND IF SHE FELT VALIUM WOULD BE APPROPRIATE FOR TONIGHT. NO ORDERS WERE RECEIVED.
[2019-05-25 07:26] VITALS: BP 161/66
--- NOTE | 2019-05-25 08:38 | EKG ---
[facility] [place] [address] ELECTROCARDIOGRAM REPORT Name: BUD DONG Room #: 362-P ADM IN M.R.#: [id number] Admission: 05/24/19 Attend Phys: Mehran Clarke Discharge: Date of : 34 Report #: [id number] THIS REPORT FOR: cc: Nabeel Weber MD, Steven E. MD Lundgren,Yaniv Odell MD [facility] ~ THIS REPORT FOR: //name// [facility] ED Test Date: 2019-05-24 Test Time: 03:28:05 Pat Name: BUD DONG Department: Room: Gender: F Channeling Machine Runner: pierre acevedo : 1930 Requested By: Ozzy Hooks Order Number: [id number] MD: Yaniv Reno Measurements Intervals [place] Rate: 95 P: 29 [place]: 163 QRS: 34 QRSD: 83 T: 50 QT: 332 QTc: 418 Interpretive Statements Sinus rhythm Normal tracing Compared to ECG 05/19/2016 06:12:12 Ectopic atrial rhythm no longer present Electronically Signed On 05-25-2019 8:37:54 NEURO UROLOGIST by Yaniv Reno [email or web address] <ELECTRONICALLY SIGNED> By: Yaniv Reno MD, [facility] 05/25/19 0837 [id number] Yaniv Reno MD, [facility] /EPI
[2019-05-25 11:03] LABS: HEMATOCRIT 32.2 % (37.0-47.0); HEMOGLOBIN 10.8 gm/dL (12.0-15.0); MCH 32.1 pg (26.0-34.0); MCHC 33.6 g/dL (28.0-37.0); MCV 95.8 fL (80.0-100.0); RBC 3.36 mil/uL (4.20-5.00); RDW 16.8 % (10.5-14.5); WBC 9.2 thou/uL (4.0-11.0)
--- NOTE | 2019-05-25 11:30 | 2DMMODE ---
[facility] [address] [place] [address] 2 D/M-MODE ECHOCARDIOGRAM Name: BUD DONG Room #: 362-P ADM IN M.R.#: [id number] Admission: 05/24/19 Attend Phys: Mehran Clarke Discharge: Date of : 34 Report #: [id number] THIS REPORT FOR: cc: Nabeel Weber MD, Steven E. MD Lammoglia, Francisco J. MD ~ APPROVED REPORT Study performed: 05/25/2019 10:37:49 EXAM: Comprehensive 2D, Doppler, and color-flow Echocardiogram Patient Location: Bedside Room #: 362 Status: routine BSA: 2.11 HR: 83 bpm BP: 161/66 mmHg Rhythm: NSR Other Information Study Quality: Fair Technically limited study due to body habitus. Indications Respiratory failure. 2D Dimensions RVDd: 35.91 mm IVSd: 11.35 (7-11mm) LVOT Diam: 20.34 (18-24mm) LVDd: 44.30 mm PWd: 10.00 (7-11mm) Ascending Ao: 27.62 (22-36mm) LVDs: 30.39 (25-40mm) Aortic Root: 29.91 mm Volumes Left Atrial Volume (Systole) Single Plane 4CH: 46.13 mL Single Plane 2CH: 43.73 mL LA ESV Index: 23.00 mL/m2 Aortic Valve AoV Peak Bobby.: 1.25 m/s AO Peak Gr.: 6.24 mmHg LVOT Max P.35 mmHg LVOT Max V: 0.92 m/s [facility] [address] [place] [address] 2 D/M-MODE ECHOCARDIOGRAM Name: BUD DONG Room #: 362-P [facility]#: [id number] Admission: 05/24/19 Attend Phys: Mehran Damon Discharge: Date of : 34 Report #: [id number] Vmax: 2.38 cm2 Mitral Valve E/A Ratio: 1.2 MV Decel. Time: 222.44 ms MV E Max Bobby.: 1.28 m/s MV A Bobby.: 1.10 m/s MV PHT: 64.51 ms IVRT: 41.52 ms Pulmonary Valve PV Peak Bobby.: 0.88 m/s PV Peak Gr.: 3.09 mmHg Pulmonary Vein P Vein S: 0.69 m/s P Vein A: 0.32 m/s P Vein D: 0.46 m/s P Vein A Dur.: 117.6 msec P Vein S/D Ratio: 1.50 Tricuspid Valve TR Peak Bobby.: 3.37 m/s RAP Estimate: 5.00 mmHg TR Peak Gr.: 45.40 mmHg PA Pressure: 50.00 mmHg Left Ventricle The left ventricle is normal size. There is normal LV segmental wall motion. Mild basal septal hypertrophy is present. Left ventricular systolic function is normal. LVEF is 55-60%. Moderate diastolic dysfunction is present. Right Ventricle The right ventricle is normal size. The right ventricular systolic function is normal. Atria The left atrium size is normal. The right atrium size is normal. Aortic Valve The aortic valve is not well visualized. No aortic regurgitation is present. There is no aortic valvular stenosis. Mitral Valve Mitral valve leaflets are mildly thickened. Trace mitral regurgitation. No evidence of mitral valve stenosis. Tricuspid Valve [facility] [address] [place] [address] 2 D/M-MODE ECHOCARDIOGRAM Name: LETITIABUD KOVACS Room #: 362-P [facility] IN M.R.#: [id number] Admission: 05/24/19 Attend Phys: Mehran Damon Discharge: Date of : 34 Report #: [id number] Tricuspid valve is not well visualized. Trace tricuspid regurgitation. Estimated PAP is 50mmHg. Pulmonic Valve Pulmonic valve is not well visualized. Great Vessels The aortic root is normal in size. The ascending aorta is normal in size. IVC is normal in size and collapses >50% with inspiration. Pericardium There is no pericardial effusion. <Conclusion> The left ventricle is normal size. LVEF is 55-60%. The aortic valve is not well visualized. Mitral valve leaflets are mildly thickened. Trace mitral regurgitation. Tricuspid valve is not well visualized. Trace tricuspid regurgitation. Estimated PAP is 50mmHg. Pulmonic valve is not well visualized. There is no pericardial effusion. <ELECTRONICALLY SIGNED> By: Jairo Han MD 05/25/19 1129 28 28 Jairo Han MD /INF
--- NOTE | 2019-05-25 12:00 | NUR ---
PT MUCH CALMER TODAY...IS COMFORTED WHEN FAMILY/CAREGIVERS ARE PRESENT...TENDS TO HOLLER WHEN SHE IS ALONE IN ROOM...HELPS TO REDIRECT HER....IS ABLE TO STATE NAME/BDAY AND CONVERSE ABOUT PLOTS IN A MOVIE...WILL MONITOR
--- NOTE | 2019-05-25 14:51 | NUR ---
INITIAL ASSESSMENT: NIRALI reviewed chart and spoke with nursing and attending physician. Pt was admitted from [facility] due to RLE cellulitis/ sepsis. Pt is slowly progressing towards goals for discharge. Pt is currenlty on IV abx. NIRALI met with pt and dtr, Nalini at bedside. Introduced role of SW. Pt is alert/orientated to self and place. Pt with hx of dementia. Pt lives alone in an AL apt at [facility]. Pt has a walker and w/c. Pt's dtrs are with her during the day time and pt has private duty care through [facility] from [id number] daily. Pt has used [facility] in the past and has been to [facility] in the past. Pt's dtr states that family's plan is for pt to return to her AL apt with [facility]. SW faxed HH referral to [facility] and notified liaison of new referral. Pt's PCP is Dr. Weber. SW is following to assist as needed with discharge planning.
[2019-05-25 15:26] VITALS: BP 193/62
[2019-05-25 20:38] VITALS: BP 186/79
[2019-05-26 04:59] VITALS: BP 146/81
[2019-05-26 07:13] LABS: HEMATOCRIT 32.5 % (37.0-47.0); HEMOGLOBIN 10.8 gm/dL (12.0-15.0); MCH 31.7 pg (26.0-34.0); MCHC 33.2 g/dL (28.0-37.0); MCV 95.6 fL (80.0-100.0); RBC 3.4 mil/uL (4.20-5.00); RDW 16.8 % (10.5-14.5); WBC 7.9 thou/uL (4.0-11.0)
[2019-05-26 07:34] LABS: ALBUMIN 2.5 g/dL (3.4-5.0); CALCIUM 8.4 mg/dL (8.5-10.1); CREATININE 0.9 mg/dL (0.6-1.0); PHOSPHORUS 3.5 mg/dL (2.5-4.9); POTASSIUM 3.7 mmol/L (3.5-5.1)
--- NOTE | 2019-05-26 07:54 | NUR ---
0700 Received report from Jaquan RN patient did not get any rest last night does not want to be bothered at this time per request of family. Door shut family at bedside.
--- NOTE | 2019-05-26 07:55 | NUR ---
PT MAKING SLOW PROGRESS TOWARDS GOALS. PT INITIALLY ORIENTED TO HER NAME, "[facility]" AND VERDIGRE. THROUGHOUT THE NIGHT PT SLEPT VERY LITTLE. ALSO SHE BECAME DISORIENTED, CRYING AND BABBLING FOR LONG PERIODS OF TIME. X2 DOSES OF PAIN MEDICATION GIVEN. SPOKE WITH DAUGHTER BY PHONE ( SHE HAD BEEN CALLED BY HER SON THAT STAYED OVERNIGHT) AND SHE WAS REQUESTING MORE VALIUM FOR THE PATIENT. ENCOURAGED TO SPEAK WITH PHYSICIAN DURING THE DAY. PT MORE CALM LATER IN AM, SAYING "THANK YOU" AND "YOU TREAT ME SO NICE."
[2019-05-26 08:20] VITALS: BP 128/86
--- NOTE | 2019-05-26 08:58 | NUR ---
Patient vomited a large amount of undigested food. She denies being nauseated stated it just happened all the sudden. here making rounds he was made aware of this.
--- NOTE | 2019-05-26 11:26 | NUR ---
FAMILY DOES NOT WISH TO HAVE THE MRI DONE AT THIS TIME.THEY FEEL IT WILL PUT THEIR MOTHER IN MORE DISTRESS THEN THE BENEFIT OF THE TEST. ANNIE WHO IS HERE AT THIS TIME ALREADY SEES THAT HER MOTHER IS CALMER AT THIS TIME AND DOES NOT WANT TO UPSET HER FURTHER WITH THIS TEST. THE PATIENT HAS NOT SLEPT FOR 3 DAYS SHE IS IS SITTING UP IN THE CHAIR WATCHING TV CALM LAUGHING AT THE PROGRAM SHE IS WATCHING.
--- NOTE | 2019-05-26 16:26 | NUR ---
SW reviewed chart and spoke with nursing and attending physician. Pt is progressing towards goals for discharge. Discharge back to [facility] with [facility] is planned for /Saturday. NIRALI met with pt and dtr, Liane, at bedside. Both are aware and agreeable with discharge plan. SW updated [facility] liaison. SW is following to assist as needed with discharge planning.
--- NOTE | 2019-05-26 18:41 | NUR ---
patient sat up in the chair most of the day. She becames very anxious when she has to stand up. If she pays attention and follows direction she is a standby assist to minimal assist x1. But when she starts getting anxious she becomes a moderate assist x2. Family did not want her to use the pure wick when she was up in the chair so patient is incontinent of lg amounts of urine. The new medication was started this evening. The patient had the 2mg valium at 1600 then the Remeron at 1640.
[2019-05-26 19:35] VITALS: BP 141/75
--- NOTE | 2019-05-27 08:08 | NUR ---
0700 report received from Jaquan ORTIZ patient laying in bed resting grandson at bedside.
[2019-05-27 08:13] VITALS: BP 195/61
[2019-05-27 09:12] LABS: ALBUMIN 2.7 g/dL (3.4-5.0); CALCIUM 9.3 mg/dL (8.5-10.1); CREATININE 1.2 mg/dL (0.6-1.0); PHOSPHORUS 3.9 mg/dL (2.5-4.9); POTASSIUM 3.9 mmol/L (3.5-5.1); TOTAL BILIRUBIN 0.6 mg/dL (<0.1-1.0); TOTAL PROTEIN 6.2 g/dL (6.4-8.2)
--- NOTE | 2019-05-27 09:32 | NUR ---
PT MAKING SLOW PROGRESS TOWARDS GOALS. PT ORIENTED TO NAME, PLACE AND YEAR UPON INTIAL ASSESSMET. THIS AM PT AWARE OF HER NAME AND YEAR THIS MORNING. PT DOES OFTEN YELL AND CRY WHEN CARES ARE DONE. PT DOES CALM DONE ONCE CARE IS COMPLETED.
--- NOTE | 2019-05-27 11:17 | NUR ---
Patient has been very lethargic this am I do not know if this is just lack of sleep or the new medications. She is more apathetic today also.
--- NOTE | 2019-05-27 11:55 | NUR ---
assisted patient up from the bed to the comode then to the chair. It took alot of encouragement to get the patient to take even a few steps. She can take the steps its just a matter of her getting past her anxiety to do it. she pushed herself up from the commode without assistance and turned with alot of verbal cueing.
--- NOTE | 2019-05-27 14:07 | PATH ---
[facility] [place] [address] PATHOLOGY RPT PROCEDURE Name: DESTINY DONG Room #: 362-P ADM IN M.R.#: [id number] Admission: 05/24/19 Date of : 34 Discharge: Report #: [id number] Path Case #: [id number] [facility] Accession Number: [id number] . 01 Material submitted: . endometrium - ENDOMETRIAL BIOPSY . 01 Clinical history: . Scant specimen due to difficult exam . 02 Diagnosis: Tissue designated as endometrial biopsy: - Specimen predominantly comprised of cervical mucus (approximately 90%). - Scant to rare detached ectocervical epithelial cells and endocervical epithelial cells with no evidence of dysplasia. - No endometrial tissue present for evaluation. (IUV:brazer furnace; 05/27/2019) MBR 05/27/2019 1151 Local . 02 Electronically signed: . Brooklyn De Leon MD, Pathologist NPI- [id number] . 01 Gross description: . Received in formalin labeled "Sal, Destiny, endometrial biopsy" is scant mucoid material measuring 1.0 x 1.0 x 0.2 cm which is entirely submitted in A1. Due to the nature of the specimen it may not survive processing.(SDY; 05/26/2019) SYU/SYU 05/26/2019 1254 Local . 02 Pathologist provided ICD-10: Z03.89 . 02 CPT . 958545 Specimen Comment: A courtesy copy of this report has been sent to [phone], [phone] Specimen Comment: [phone] Specimen Comment: Report sent to / DR EAGLE Performed at: [address], [place] [id number] MD Yogesh Rubio MD Phone: [phone] Performed at: [address] [id number] MD Brooklyn De Leon MD Phone: [phone]
[2019-05-27 15:45] VITALS: BP 161/52
--- NOTE | 2019-05-27 22:44 | NUR ---
ASSUMED PT CARE AT APPROX 1900.PT'S DTR AT BEDSIDE DURING SHIFT CHANGE.PT C/O PAIN ON HER BACK,MANAGED WITH MED.RLE CELLULITIS,RED AND WARM TO TOUCH.ALL PT'S SCHEDULED HS MEDS ADMINISTERED BEFORE PT WAS TRANSFERED TO 442.PT AND HER GRAND SON NOTIFIED.PT WAS MOVED TO 4S AT APPROX 2210.REPORT CALLED TO THE NURSE ON THE UNIT.PT LEFT WITH ALL HER PERSONAL BELONGINGS,
--- NOTE | 2019-05-28 04:30 | NUR ---
PT TO UNIT AROUND 2129. FINISHED HANGING ANTIBIOTIC. ALERT BUT CONFUSED AT THIS TIME. PT REFUSING VITALS THIS MORNING. SON AT BEDSIDE. ASSESSMENT DONE AND CHARTED. WILL CONTINUE TO MONITOR, CURRENTLY SLEEPING COMFORTABLY.
--- NOTE | 2019-05-28 14:08 | NUR ---
PT IS PROGRESSING TOWARD GOAL OF DISCHARGE. IT IS ANTICIAPTED THAT PT WILL RETURN TO [facility]. CM TO FOLLOW INDICATED WITH [facility] PLANNING.
--- NOTE | 2019-05-28 15:00 | NUR ---
ASSUMED CARE OF THE PT AT 0700. PT IS A FALL RISK, FALL PRECAUTIONS IN PLACE. R AC IV DRY AND INTACT WITH PROTECTIVE WRAP. PTS L & R FEET HAVE EDEMA AND ARE ELEVATED. PT UP TO TOILET WITH GAIT BELT AND WALKER. PAIN CONTROLLED WITH PAIN MEDS AND DISTRACTION, SEE EMAR. PT IS VERY CONFUSED. DAUGHTER AT BEDSIDE. PT UP IN CHAIR. CHAIR ALARM ON, CALL LIGHT IS WITHIN REACH. WILL CONTINUE TO MONITOR THE PT.
[2019-05-29 07:49] VITALS: BP 122/40
--- NOTE | 2019-05-29 07:51 | NUR ---
ASSUMED PT CARE AT 1900. FAM IS REQUESTING THAT PT GETS ONLY TYLENOL AFTER 3AM, THINKS IT IS MAKING HER TOO DROWSY TO WORK WITH PT. EPISODE OF INCONTINENCE OVERNIGHT, FULL BED CHANGE DONE. ANTIBIOTICS HUNG PER ORDER. GRANDSON AT BEDSIDE. AWAITING DISCHARGE POSSIBLY TODAY. VERY DIFICULT TO GET A BLOOD PRESSURE ON, REFUSES ANY TAKEN ON ARM. MACHINE HAS A HARD TIME GETTING ONE OF HER LEG AND PT YELLS OUTIN PAIN FROM SQUEEZING OF LEG TOO. NO OTHER SIGNIFICANT CHANGES AT THIS TIME.
[2019-05-29] MEDS ORDERED: COZAAR100 MG PO (10:34)
[2019-05-29] MEDS ORDERED: NAMENDA 5 MG TAB5 M1 PO (10:35)
[2019-05-29] MEDS ORDERED: REMERON 30 MG T30 M1 PO (10:35)
[2019-05-29] MEDS ORDERED: CEFUROXIME500 MG PO (10:36)
--- NOTE | 2019-05-29 11:14 | NUR ---
PT UP IN BEDSIDE CHAIR. TOOK AM MEDS AND PRN PAIN MED. PT CONT OF B&B USING BSC THIS AM. PT TO DISCHARGE TODAY TO SKILLED FACILITY. DR ABDI HERE TO SEE PATIENT.
--- NOTE | 2019-05-29 14:59 | NUR ---
MET WITH JEFFERY CHARLES AT THE BEDSIDE TO DISCUSS REC FOR SNF AT [place]. SHE IS INTERESTED IN [facility]. S/W [facility] IN ADMISSIONS & SHE SAY THEY WILL HAVE A BED ON SAT. HAD DC [facility]IS[facility]ER FAX REFERRAL TO THEM FOR THEIR REVIEW. JEFFERY CHARLES WENT & TOURED [facility]. RECEIVED FAX FROM [facility] SAYING SHE ONLY HAS ONE BED & HAD ANOTHER REFERRAL YESTERDAY & IF THAT PT IS READY BED WILL BE FILLED. NOTIFIED BY [facility] THAT NO BED ON SAT. S/W JEFFERY CHARLES TO ALERT OF THIS AND TO ASKE FOR 2-3 OTHER CHOICES JAIRO.
--- NOTE | 2019-05-29 15:09 | NUR ---
[facility] CAN'T TAKE. SPOKE WITH DTR AND THEY ASKED THAT REFERRAL BE SENT TO [facility], [facility], AND [facility] TO REVIEW FOR POSSIBLE ADMISSION. REFERRALS SENT AWAITING RESPONSE. CM TO FOLLOW INDICATED WITH [facility] PLANNING.
--- NOTE | 2019-05-29 15:45 | NUR ---
FAXED REFERRAL TO [facility] SPOKE WITH ALAINA IN ADM SHE RECEIVED REFERRAL BUT WILL NOT HAVE A FEMALE BED AVAILABLE. FAXED REFERRAL TO [facility] SPOKE WITH STAR IN ADM SHE RECEIVED REFERRAL AND IS REVIEWING IT. FAXED REFERRAL TO [facility] RECEIVED CONFIRMATION AND LEFT MSG WITH DONATO IN ADM THAT PT IS DC READY TODAY. DP TO FOLLOW.
--- NOTE | 2019-05-29 17:57 | NUR ---
PATIENT DISCHARGED AT 1735. IV ACSESS DCD, PRN PAIN MED AND ANXIETY MED GIVEN AT DISCHARGE PT CONFUSED AND HAS INCREASED ANXIETY. ALL BELONGINGS PACKED AND SENT WITH PATIENT. FAMILY AT BEDSIDE. PT LEFT W/C VAN
== END 2019-05-29 17:40 | DRG 853 ==
LOC: ER 02:40 → 3W 08:25 → 4S 05-27 22:14
PROVIDERS: Emergency Medicine; ADMIT Hospitalist
PROC: 0UDB7ZX Extraction of Endometrium, Via Natural or Artificial Opening, Diagnostic (ICD-10-PCS; principal; 2019-05-24)
DX: A41.9 Sepsis, unspecified organism (principal); J18.9 Pneumonia, unspecified organism; G93.41 Metabolic encephalopathy; K50.90 Crohn's disease, unspecified, without complications; L03.113 Cellulitis of right upper limb; G20 Parkinson's disease; G30.9 Alzheimer's disease, unspecified; F02.80 Dementia in other diseases classified elsewhere, unspecified severity, without behavioral disturbance, psychotic disturbance, mood disturbance, and anxiety; E89.0 Postprocedural hypothyroidism; N18.9 Chronic kidney disease, unspecified; E87.6 Hypokalemia; E83.42 Hypomagnesemia; N88.2 Stricture and stenosis of cervix uteri; D39.0 Neoplasm of uncertain behavior of uterus; G47.33 Obstructive sleep apnea (adult) (pediatric); I12.9 Hypertensive chronic kidney disease with stage 1 through stage 4 chronic kidney disease, or unspecified chronic kidney disease; Z79.82 Long term (current) use of aspirin; Z79.899 Other long term (current) drug therapy; Z88.6 Allergy status to analgesic agent; Z88.8 Allergy status to other drugs, medicaments and biological substances; Z87.891 Personal history of nicotine dependence
CPT/HCPCS: 10195; 10879